=== PATIENT | male | born 1940 | race African-American/Black ===

== ENCOUNTER 2021-04-27 12:46 | Inpatient (IN) | payer OTHER ==
[2021-04-27 14:04] VITALS: BMI 16.7
[2021-04-27] MEDS ORDERED: ACETAMINOPHEN 325 MG TABLET (FP) PO PRN ×2 (14:35)
[2021-04-27] MEDS ORDERED: NICOTINE POLACRILEX 2 MG GUM BUC PRN (14:35)
[2021-04-27] MEDS ORDERED: MAG HYDROX/AL HYDROX/SIMETH 30 ML UNIT-DOSE CUP PO PRN (14:35)
[2021-04-27] MEDS ORDERED: MAGNESIUM HYDROX 2400MG/30ML ORAL SUSPENSION 30 ML CUP PO PRN (14:35)
[2021-04-27] MEDS ORDERED: ONDANSETRON *ODT* 4 MG TABLET SL PRN (14:35)
[2021-04-27] MEDS ORDERED: MAGNESIUM CITRATE 300 ML BOTTLE PO PRN (14:35)
[2021-04-27] MEDS ORDERED: METHOCARBAMOL 500 MG TABLET PO PRN (14:35)
[2021-04-27] MEDS ORDERED: MENTHOL/PHENOL 1 EACH UD MM PRN (14:35)
[2021-04-27] MEDS ORDERED: BISMUTH SUBSALICYLATE 524 MG/30 ML PO PRN (14:35)
[2021-04-27] MEDS ORDERED: IBUPROFEN 400 MG TABLET (FP) PO PRN (14:35)
[2021-04-27] MEDS: NICOTINE 14 MG/24 HOURS TOPICAL PATCH TD SCH (17:50)
[2021-04-27] MEDS: hydrOXYzine PAMOATE 25 MG CAPSULE (FP) PO SCH ×2 (17:50→22:52)
[2021-04-27] MEDS: ALBUTEROL SO4 HFA INHALER IH SCH ×2 (18:07→23:13)
[2021-04-27] MEDS: ATORVASTATIN CA 40 MG TABLET (FP) PO SCH (22:52)
[2021-04-27] MEDS: THIAMINE HCL 100 MG TABLET (FP) PO SCH (22:52)
[2021-04-27] MEDS: BUDESONIDE/FORMETEROL FUMARATE 160/4.5 mcg INHALER IH SCH (22:58)
[2021-04-27] MEDS: MELATONIN 5 MG TABLETS PO SCH (23:10)
[2021-04-28] MEDS: hydrOXYzine PAMOATE 25 MG CAPSULE (FP) PO SCH ×5 (06:30→22:43)
[2021-04-28] MEDS: ALBUTEROL SO4 HFA INHALER IH SCH ×4 (06:30→22:43)
[2021-04-28] MEDS: TAMSULOSIN HCL 0.4 MG CAP PO SCH (08:48)
[2021-04-28 09:56] LABS: HEMATOCRIT 30.3 % (35.4-49); HEMOGLOBIN 10.3 GM/dL (11.7-16.9); MCH 32.1 pg (25.7-33.7); MCHC 33.9 g/dl (32.0-35.9); MEAN CELL VOLUME 94.6 fl (80-96); MEAN PLT VOLUME 7.7 fl (7.5-11.1); PLATELET COUNT 287 10^3/uL (134-434)
[2021-04-28 10:15] LABS: ALBUMIN 2.6 g/dl (3.4-5.0); BLOOD UREA NITROGEN 14.4 mg/dL (7-18); CALCIUM 7.9 mg/dL (8.5-10.1)
[2021-04-28 10:19] LABS: CREATININE 0.8 mg/dL (0.55-1.3)
[2021-04-28 10:20] LABS: BILIRUBIN,TOTAL 0.4 mg/dL (0.2-1); TOT PROT 5.7 g/dl (6.4-8.2)
[2021-04-28] MEDS: NIFEdipine E.R. 30 MG TABLET PO SCH (10:47)
[2021-04-28] MEDS: PRENATAL VITAMINS W/ FOLIC ACID TABLET (FP) PO SCH (10:48)
[2021-04-28] MEDS: PANTOPRAZOLE 40 MG TABLET PO SCH (10:48)
[2021-04-28] MEDS: ASPIRIN 81 MG CHEWABLE TABLETS PO SCH (10:48)
[2021-04-28] MEDS: NICOTINE 14 MG/24 HOURS TOPICAL PATCH TD SCH (10:48)
[2021-04-28] MEDS: BUDESONIDE/FORMETEROL FUMARATE 160/4.5 mcg INHALER IH SCH ×2 (10:49→22:43)
[2021-04-28] MEDS ORDERED: LORazepam 1 MG TABLET PO PRN (12:51)
[2021-04-28] MEDS: LORazepam 2 MG TABLET PO SCH ×2 (18:19→22:42)
[2021-04-28] MEDS: CALCIUM 500MG/VIT-D 200 UNITS COMBO TABLET (FP) PO SCH (22:42)
[2021-04-28] MEDS: ATORVASTATIN CA 40 MG TABLET (FP) PO SCH (22:42)
[2021-04-28] MEDS: MELATONIN 5 MG TABLETS PO SCH (22:42)
[2021-04-28] MEDS: THIAMINE HCL 100 MG TABLET (FP) PO SCH (22:43)
[2021-04-29] MEDS: hydrOXYzine PAMOATE 25 MG CAPSULE (FP) PO SCH (06:07)
[2021-04-29] MEDS: ALBUTEROL SO4 HFA INHALER IH SCH ×4 (06:07→23:04)
[2021-04-29] MEDS: LORazepam 2 MG TABLET PO SCH ×4 (06:15→23:03)
[2021-04-29] MEDS: TAMSULOSIN HCL 0.4 MG CAP PO SCH (09:01)
[2021-04-29] MEDS: CALCIUM 500MG/VIT-D 200 UNITS COMBO TABLET (FP) PO SCH ×2 (11:00→23:03)
[2021-04-29] MEDS: PANTOPRAZOLE 40 MG TABLET PO SCH (11:00)
[2021-04-29] MEDS: PRENATAL VITAMINS W/ FOLIC ACID TABLET (FP) PO SCH (11:00)
[2021-04-29] MEDS: ASPIRIN 81 MG CHEWABLE TABLETS PO SCH (11:00)
[2021-04-29] MEDS: BUDESONIDE/FORMETEROL FUMARATE 160/4.5 mcg INHALER IH SCH ×2 (11:01→23:04)
[2021-04-29] MEDS: NIFEdipine E.R. 30 MG TABLET PO SCH (11:01)
[2021-04-29] MEDS: NICOTINE 14 MG/24 HOURS TOPICAL PATCH TD SCH (11:02)
[2021-04-29] MEDS: THIAMINE HCL 100 MG TABLET (FP) PO SCH (23:03)
[2021-04-29] MEDS: ATORVASTATIN CA 40 MG TABLET (FP) PO SCH (23:04)
[2021-04-29] MEDS: MELATONIN 5 MG TABLETS PO SCH (23:04)
[2021-04-30] MEDS: LORazepam 1 MG TABLET PO SCH ×4 (06:06→22:54)
[2021-04-30] MEDS: ALBUTEROL SO4 HFA INHALER IH SCH ×4 (06:08→22:55)
[2021-04-30] MEDS: TAMSULOSIN HCL 0.4 MG CAP PO SCH (08:36)
[2021-04-30] MEDS: PRENATAL VITAMINS W/ FOLIC ACID TABLET (FP) PO SCH (10:35)
[2021-04-30] MEDS: BUDESONIDE/FORMETEROL FUMARATE 160/4.5 mcg INHALER IH SCH ×2 (10:35→22:55)
[2021-04-30] MEDS: NIFEdipine E.R. 30 MG TABLET PO SCH (10:36)
[2021-04-30] MEDS: ASPIRIN 81 MG CHEWABLE TABLETS PO SCH (10:36)
[2021-04-30] MEDS: PANTOPRAZOLE 40 MG TABLET PO SCH (10:36)
[2021-04-30] MEDS: CALCIUM 500MG/VIT-D 200 UNITS COMBO TABLET (FP) PO SCH ×2 (10:37→22:54)
[2021-04-30] MEDS: NICOTINE 14 MG/24 HOURS TOPICAL PATCH TD SCH (10:43)
[2021-04-30] MEDS: THIAMINE HCL 100 MG TABLET (FP) PO SCH (22:54)
[2021-04-30] MEDS: MELATONIN 5 MG TABLETS PO SCH (22:54)
[2021-04-30] MEDS: ATORVASTATIN CA 40 MG TABLET (FP) PO SCH (22:54)
[2021-05-01] MEDS ORDERED: LORazepam 0.5 MG TABLET PO PRN
[2021-05-01] MEDS: ALBUTEROL SO4 HFA INHALER IH SCH ×2 (05:19→10:31)
[2021-05-01] MEDS: LORazepam 0.5 MG TABLET PO SCH ×2 (06:09→10:32)
[2021-05-01] MEDS: TAMSULOSIN HCL 0.4 MG CAP PO SCH (10:22)
[2021-05-01] MEDS: PANTOPRAZOLE 40 MG TABLET PO SCH (10:22)
[2021-05-01] MEDS: PRENATAL VITAMINS W/ FOLIC ACID TABLET (FP) PO SCH (10:22)
[2021-05-01] MEDS: ASPIRIN 81 MG CHEWABLE TABLETS PO SCH (10:22)
[2021-05-01] MEDS: NIFEdipine E.R. 30 MG TABLET PO SCH (10:22)
[2021-05-01] MEDS: CALCIUM 500MG/VIT-D 200 UNITS COMBO TABLET (FP) PO SCH (10:23)
[2021-05-01] MEDS: BUDESONIDE/FORMETEROL FUMARATE 160/4.5 mcg INHALER IH SCH (10:31)
[2021-05-01] MEDS: NICOTINE 14 MG/24 HOURS TOPICAL PATCH TD SCH (10:31)
[2021-05-01 14:09] VITALS: BP 143/81; PULSE 78; TEMP 97.1
[2021-05-02] MEDS ORDERED: LORazepam 0.5 MG TABLET PO ONE (05:00)
== END 2021-05-01 16:00 | disposition home or self-care (01) | DRG 897 ==
LOC: YASAS 12:46 → Y3N 14:59
PROVIDERS: ADMIT Allergy & Immunology; ATTEND Allergy & Immunology
PROC: HZ2ZZZZ Detoxification Services for Substance Abuse Treatment (ICD-10-PCS; principal; 2021-04-27)
DX: F10.230 Alcohol dependence with withdrawal, uncomplicated (principal); F17.210 Nicotine dependence, cigarettes, uncomplicated; D64.9 Anemia, unspecified; E83.51 Hypocalcemia; I10 Essential (primary) hypertension; J44.9 Chronic obstructive pulmonary disease, unspecified; N40.0 Benign prostatic hyperplasia without lower urinary tract symptoms; Z99.89 Dependence on other enabling machines and devices; Z86.19 Personal history of other infectious and parasitic diseases
CPT/HCPCS: 36415; 80053; 85027; 86593; 86780; 93005; 93010; C9803; U0003; U0005

== ENCOUNTER 2021-06-19 12:07 | Inpatient (IN) | payer OTHER ==
[2021-06-19 15:40] VITALS: BMI 17.4
[2021-06-19] MEDS ORDERED: LORazepam 1 MG TABLET PO PRN (16:31)
[2021-06-19] MEDS ORDERED: MAGNESIUM HYDROX 2400MG/30ML ORAL SUSPENSION 30 ML CUP PO PRN (16:32)
[2021-06-19] MEDS ORDERED: BISMUTH SUBSALICYLATE 524 MG/30 ML PO PRN (16:32)
[2021-06-19] MEDS ORDERED: ONDANSETRON *ODT* 4 MG TABLET SL PRN (16:32)
[2021-06-19] MEDS ORDERED: MAGNESIUM CITRATE 300 ML BOTTLE PO PRN (16:32)
[2021-06-19] MEDS ORDERED: IBUPROFEN 400 MG TABLET (FP) PO PRN (16:32)
[2021-06-19] MEDS ORDERED: MENTHOL/PHENOL 1 EACH UD MM PRN (16:32)
[2021-06-19] MEDS ORDERED: METHOCARBAMOL 500 MG TABLET PO PRN (16:32)
[2021-06-19] MEDS ORDERED: ACETAMINOPHEN 325 MG TABLET (FP) PO PRN ×2 (16:32)
[2021-06-19] MEDS ORDERED: MAG HYDROX/AL HYDROX/SIMETH 30 ML UNIT-DOSE CUP PO PRN (16:32)
[2021-06-19] MEDS ORDERED: NICOTINE 10 MG CARTRIDGE (INHALER) IH PRN (16:32)
[2021-06-19] MEDS ORDERED: ALBUTEROL SO4 HFA INHALER IH PRN (17:59)
[2021-06-19] MEDS ORDERED: hydrOXYzine PAMOATE 25 MG CAPSULE (FP) PO SCH (18:00)
[2021-06-19] MEDS: ATORVASTATIN CA 40 MG TABLET (FP) PO SCH (22:50)
[2021-06-19] MEDS: MELATONIN 5 MG TABLETS PO SCH (22:50)
[2021-06-19] MEDS: THIAMINE HCL 100 MG TABLET (FP) PO SCH (22:50)
[2021-06-19] MEDS: hydrOXYzine PAMOATE 25 MG CAPSULE (FP) PO PRN (22:50)
[2021-06-19] MEDS: BUDESONIDE/FORMETEROL FUMARATE 160/4.5 mcg INHALER IH SCH (22:50)
[2021-06-19] MEDS: LORazepam 2 MG TABLET PO SCH (22:50)
[2021-06-20] MEDS: LORazepam 2 MG TABLET PO SCH ×4 (05:35→23:11)
[2021-06-20] MEDS ORDERED: NIFEdipine E.R. 30 MG TABLET PO SCH (10:00)
[2021-06-20] MEDS: PANTOPRAZOLE 40 MG TABLET PO SCH (11:20)
[2021-06-20] MEDS: TAMSULOSIN HCL 0.4 MG CAP PO SCH (11:20)
[2021-06-20] MEDS: BUDESONIDE/FORMETEROL FUMARATE 160/4.5 mcg INHALER IH SCH ×2 (11:20→23:11)
[2021-06-20] MEDS: ASPIRIN 81 MG CHEWABLE TABLETS PO SCH (11:20)
[2021-06-20] MEDS: PRENATAL VITAMINS W/ FOLIC ACID TABLET (FP) PO SCH (11:21)
[2021-06-20 12:44] LABS: HEMATOCRIT 32.1 % (35.4-49); MCH 32.5 pg (25.7-33.7); MCHC 34.3 g/dl (32.0-35.9); MEAN CELL VOLUME 94.6 fl (80-96); MEAN PLT VOLUME 7.9 fl (7.5-11.1); PLATELET COUNT 140 10^3/uL (134-434); RBC 3.39 M/mm3 (4.00-5.60); RDW 15.6 % (11.9-15.9); WHITE BLOOD COUNT 4.3 K/mm3 (4.0-10.0)
[2021-06-20 12:49] LABS: ALBUMIN 2.8 g/dl (3.4-5.0); BLOOD UREA NITROGEN 12.8 mg/dL (7-18)
[2021-06-20 12:53] LABS: CREATININE 0.9 mg/dL (0.55-1.3)
[2021-06-20 12:54] LABS: BILIRUBIN,TOTAL 1.1 mg/dL (0.2-1); TOT PROT 6.3 g/dl (6.4-8.2)
[2021-06-20] MEDS: THIAMINE HCL 100 MG TABLET (FP) PO SCH (23:11)
[2021-06-20] MEDS: MELATONIN 5 MG TABLETS PO SCH (23:11)
[2021-06-20] MEDS: ATORVASTATIN CA 40 MG TABLET (FP) PO SCH (23:11)
[2021-06-21] MEDS: LORazepam 1 MG TABLET PO SCH ×4 (05:59→22:42)
[2021-06-21] MEDS: PANTOPRAZOLE 40 MG TABLET PO SCH (10:50)
[2021-06-21] MEDS: BUDESONIDE/FORMETEROL FUMARATE 160/4.5 mcg INHALER IH SCH ×2 (10:50→22:42)
[2021-06-21] MEDS: ASPIRIN 81 MG CHEWABLE TABLETS PO SCH (10:50)
[2021-06-21] MEDS: TAMSULOSIN HCL 0.4 MG CAP PO SCH (10:50)
[2021-06-21] MEDS: PRENATAL VITAMINS W/ FOLIC ACID TABLET (FP) PO SCH (10:51)
[2021-06-21] MEDS: NIFEdipine E.R 60 MG TABLET PO SCH (10:52)
[2021-06-21] MEDS: hydrOXYzine PAMOATE 25 MG CAPSULE (FP) PO PRN (18:05)
[2021-06-21] MEDS: ATORVASTATIN CA 40 MG TABLET (FP) PO SCH (22:42)
[2021-06-21] MEDS: THIAMINE HCL 100 MG TABLET (FP) PO SCH (22:42)
[2021-06-21] MEDS: MELATONIN 5 MG TABLETS PO SCH (22:42)
[2021-06-22] MEDS ORDERED: LORazepam 0.5 MG TABLET PO PRN
[2021-06-22] MEDS: LORazepam 0.5 MG TABLET PO SCH ×4 (06:44→22:45)
[2021-06-22] MEDS: PRENATAL VITAMINS W/ FOLIC ACID TABLET (FP) PO SCH (10:45)
[2021-06-22] MEDS: PANTOPRAZOLE 40 MG TABLET PO SCH (10:46)
[2021-06-22] MEDS: TAMSULOSIN HCL 0.4 MG CAP PO SCH (10:46)
[2021-06-22] MEDS: ASPIRIN 81 MG CHEWABLE TABLETS PO SCH (10:46)
[2021-06-22] MEDS: BUDESONIDE/FORMETEROL FUMARATE 160/4.5 mcg INHALER IH SCH ×2 (10:47→22:45)
[2021-06-22] MEDS: NIFEdipine E.R 60 MG TABLET PO SCH (10:47)
[2021-06-22] MEDS: MELATONIN 5 MG TABLETS PO SCH (22:44)
[2021-06-22] MEDS: THIAMINE HCL 100 MG TABLET (FP) PO SCH (22:48)
[2021-06-22] MEDS: ATORVASTATIN CA 40 MG TABLET (FP) PO SCH (22:48)
[2021-06-23] MEDS ORDERED: LORazepam 0.5 MG TABLET PO ONE (05:00)
[2021-06-23 09:39] VITALS: BP 132/76; PULSE 83; TEMP 96.8
[2021-06-23] MEDS: TAMSULOSIN HCL 0.4 MG CAP PO SCH (10:57)
[2021-06-23] MEDS: PANTOPRAZOLE 40 MG TABLET PO SCH (10:57)
[2021-06-23] MEDS: NIFEdipine E.R 60 MG TABLET PO SCH (10:57)
[2021-06-23] MEDS: PRENATAL VITAMINS W/ FOLIC ACID TABLET (FP) PO SCH (10:57)
[2021-06-23] MEDS: BUDESONIDE/FORMETEROL FUMARATE 160/4.5 mcg INHALER IH SCH (10:57)
[2021-06-23] MEDS: ASPIRIN 81 MG CHEWABLE TABLETS PO SCH (10:57)
== END 2021-06-23 11:50 | disposition home or self-care (01) | DRG 897 ==
LOC: YASAS 12:07 → Y3N 17:18
PROVIDERS: ADMIT Allergy & Immunology; ATTEND Allergy & Immunology
PROC: HZ2ZZZZ Detoxification Services for Substance Abuse Treatment (ICD-10-PCS; principal; 2021-06-19)
DX: F10.230 Alcohol dependence with withdrawal, uncomplicated (principal); F17.210 Nicotine dependence, cigarettes, uncomplicated; F19.24 Other psychoactive substance dependence with psychoactive substance-induced mood disorder; D64.9 Anemia, unspecified; E78.5 Hyperlipidemia, unspecified; J44.9 Chronic obstructive pulmonary disease, unspecified; N40.0 Benign prostatic hyperplasia without lower urinary tract symptoms; R26.89 Other abnormalities of gait and mobility; Z99.89 Dependence on other enabling machines and devices; Z86.59 Personal history of other mental and behavioral disorders; Z86.2 Personal history of diseases of the blood and blood-forming organs and certain disorders involving the immune mechanism
CPT/HCPCS: 36415; 80053; 85027; 86593; 86780; C9803; U0003; U0005

== ENCOUNTER 2021-07-19 11:29 | Inpatient (IN) | payer OTHER ==
[2021-07-19 11:57] VITALS: BMI 17.0
[2021-07-19] MEDS ORDERED: LORazepam 1 MG TABLET PO PRN (13:03)
[2021-07-19] MEDS ORDERED: NICOTINE 14 MG/24 HOURS TOPICAL PATCH TD PRN (13:04)
[2021-07-19] MEDS ORDERED: METHOCARBAMOL 500 MG TABLET PO PRN (13:04)
[2021-07-19] MEDS ORDERED: MAGNESIUM HYDROX 2400MG/30ML ORAL SUSPENSION 30 ML CUP PO PRN (13:04)
[2021-07-19] MEDS ORDERED: NICOTINE POLACRILEX 2 MG GUM BUC PRN (13:04)
[2021-07-19] MEDS ORDERED: ONDANSETRON *ODT* 4 MG TABLET SL PRN (13:04)
[2021-07-19] MEDS ORDERED: MENTHOL/PHENOL 1 EACH UD MM PRN (13:04)
[2021-07-19] MEDS ORDERED: IBUPROFEN 400 MG TABLET (FP) PO PRN (13:04)
[2021-07-19] MEDS ORDERED: BISMUTH SUBSALICYLATE 262 MG/15 ML BTL PO PRN (13:04)
[2021-07-19] MEDS ORDERED: NICOTINE 10 MG CARTRIDGE (INHALER) IH PRN (13:04)
[2021-07-19] MEDS ORDERED: MAG HYDROX/AL HYDROX/SIMETH 30 ML UNIT-DOSE CUP PO PRN (13:04)
[2021-07-19] MEDS ORDERED: ACETAMINOPHEN 325 MG TABLET (FP) PO PRN ×2 (13:04)
[2021-07-19] MEDS ORDERED: MAGNESIUM CITRATE 300 ML BOTTLE PO PRN (13:04)
[2021-07-19] MEDS ORDERED: ALBUTEROL SO4 HFA INHALER IH SCH (13:15)
[2021-07-19] MEDS: BUDESONIDE/FORMETEROL FUMARATE 160/4.5 mcg INHALER IH SCH ×2 (14:08→22:45)
[2021-07-19] MEDS: ASPIRIN 81 MG CHEWABLE TABLETS PO SCH (14:09)
[2021-07-19] MEDS: TAMSULOSIN HCL 0.4 MG CAP PO SCH (14:09)
[2021-07-19] MEDS: PANTOPRAZOLE 40 MG TABLET PO SCH (14:09)
[2021-07-19] MEDS: FOLIC ACID 1 MG TABLET (FP) PO SCH (14:09)
[2021-07-19] MEDS ORDERED: ALBUTEROL SO4 HFA INHALER IH PRN (14:10)
[2021-07-19] MEDS: PRENATAL VITAMINS W/ FOLIC ACID TABLET (FP) PO SCH (14:10)
[2021-07-19] MEDS: hydrOXYzine PAMOATE 25 MG CAPSULE (FP) PO SCH ×3 (15:11→22:44)
[2021-07-19] MEDS: LORazepam 2 MG TABLET PO SCH ×3 (15:11→22:44)
[2021-07-19 16:42] LABS: CALCIUM 8.6 mg/dL (8.5-10.1); HEMATOCRIT 33.4 % (35.4-49); HEMOGLOBIN 11.3 GM/dL (11.7-16.9); MCH 32.4 pg (25.7-33.7); MCHC 33.6 g/dl (32.0-35.9); MEAN CELL VOLUME 96.3 fl (80-96); RBC 3.47 M/mm3 (4.00-5.60); RDW 15.7 % (11.9-15.9); WHITE BLOOD COUNT 4.4 K/mm3 (4.0-10.0)
[2021-07-19 16:45] LABS: ALBUMIN 3.2 g/dl (3.4-5.0)
[2021-07-19 16:47] LABS: BLOOD UREA NITROGEN 19.2 mg/dL (7-18)
[2021-07-19 16:48] LABS: CREATININE 1.1 mg/dL (0.55-1.3)
[2021-07-19 16:50] LABS: BILIRUBIN,TOTAL 0.6 mg/dL (0.2-1); TOT PROT 6.7 g/dl (6.4-8.2)
[2021-07-19 18:42] LABS: MEAN PLT VOLUME 8.1 fl (7.5-11.1); PLATELET COUNT 80 10^3/uL (134-434)
[2021-07-19] MEDS: THIAMINE HCL 100 MG TABLET (FP) PO SCH (22:43)
[2021-07-19] MEDS: ATORVASTATIN CA 40 MG TABLET (FP) PO SCH (22:43)
[2021-07-19] MEDS: MELATONIN 5 MG TABLETS PO SCH (22:43)
[2021-07-20] MEDS: LORazepam 2 MG TABLET PO SCH ×4 (05:57→22:51)
[2021-07-20] MEDS: hydrOXYzine PAMOATE 25 MG CAPSULE (FP) PO SCH ×5 (06:06→22:49)
[2021-07-20] MEDS: BUDESONIDE/FORMETEROL FUMARATE 160/4.5 mcg INHALER IH SCH ×2 (10:37→22:56)
[2021-07-20] MEDS: PRENATAL VITAMINS W/ FOLIC ACID TABLET (FP) PO SCH (10:38)
[2021-07-20] MEDS: PANTOPRAZOLE 40 MG TABLET PO SCH (10:39)
[2021-07-20] MEDS: FOLIC ACID 1 MG TABLET (FP) PO SCH (10:39)
[2021-07-20] MEDS: ASPIRIN 81 MG CHEWABLE TABLETS PO SCH (10:39)
[2021-07-20] MEDS: NIFEdipine E.R 60 MG TABLET PO SCH (10:40)
[2021-07-20] MEDS: TAMSULOSIN HCL 0.4 MG CAP PO SCH (11:05)
[2021-07-20] MEDS: THIAMINE HCL 100 MG TABLET (FP) PO SCH (22:49)
[2021-07-20] MEDS: ATORVASTATIN CA 40 MG TABLET (FP) PO SCH (22:49)
[2021-07-20] MEDS: MELATONIN 5 MG TABLETS PO SCH (22:49)
[2021-07-21] MEDS: hydrOXYzine PAMOATE 25 MG CAPSULE (FP) PO SCH ×5 (06:45→22:42)
[2021-07-21] MEDS: LORazepam 1 MG TABLET PO SCH ×4 (06:46→22:44)
[2021-07-21] MEDS: PRENATAL VITAMINS W/ FOLIC ACID TABLET (FP) PO SCH (10:40)
[2021-07-21] MEDS: BUDESONIDE/FORMETEROL FUMARATE 160/4.5 mcg INHALER IH SCH ×2 (10:40→22:46)
[2021-07-21] MEDS: PANTOPRAZOLE 40 MG TABLET PO SCH (10:40)
[2021-07-21] MEDS: FOLIC ACID 1 MG TABLET (FP) PO SCH (10:40)
[2021-07-21] MEDS: NIFEdipine E.R 60 MG TABLET PO SCH (10:41)
[2021-07-21] MEDS: TAMSULOSIN HCL 0.4 MG CAP PO SCH (10:41)
[2021-07-21] MEDS: ASPIRIN 81 MG CHEWABLE TABLETS PO SCH (10:41)
[2021-07-21] MEDS: THIAMINE HCL 100 MG TABLET (FP) PO SCH (22:42)
[2021-07-21] MEDS: ATORVASTATIN CA 40 MG TABLET (FP) PO SCH (22:42)
[2021-07-21] MEDS: MELATONIN 5 MG TABLETS PO SCH (22:46)
[2021-07-22] MEDS ORDERED: LORazepam 0.5 MG TABLET PO PRN
[2021-07-22] MEDS: hydrOXYzine PAMOATE 25 MG CAPSULE (FP) PO SCH ×5 (06:25→23:16)
[2021-07-22] MEDS: LORazepam 0.5 MG TABLET PO SCH ×4 (06:25→23:16)
[2021-07-22] MEDS: TAMSULOSIN HCL 0.4 MG CAP PO SCH (08:38)
[2021-07-22] MEDS: ASPIRIN 81 MG CHEWABLE TABLETS PO SCH (10:38)
[2021-07-22] MEDS: PANTOPRAZOLE 40 MG TABLET PO SCH (10:38)
[2021-07-22] MEDS: BUDESONIDE/FORMETEROL FUMARATE 160/4.5 mcg INHALER IH SCH ×2 (10:38→23:16)
[2021-07-22] MEDS: PRENATAL VITAMINS W/ FOLIC ACID TABLET (FP) PO SCH (10:38)
[2021-07-22] MEDS: FOLIC ACID 1 MG TABLET (FP) PO SCH (10:38)
[2021-07-22] MEDS: NIFEdipine E.R 60 MG TABLET PO SCH (10:40)
[2021-07-22] MEDS: MELATONIN 5 MG TABLETS PO SCH (23:16)
[2021-07-22] MEDS: THIAMINE HCL 100 MG TABLET (FP) PO SCH (23:16)
[2021-07-22] MEDS: ATORVASTATIN CA 40 MG TABLET (FP) PO SCH (23:16)
[2021-07-23] MEDS ORDERED: LORazepam 0.5 MG TABLET PO ONE (05:00)
[2021-07-23] MEDS: hydrOXYzine PAMOATE 25 MG CAPSULE (FP) PO SCH ×2 (05:28→10:52)
[2021-07-23 09:22] VITALS: BP 133/69; PULSE 80; TEMP 97.5
[2021-07-23] MEDS: ASPIRIN 81 MG CHEWABLE TABLETS PO SCH (10:50)
[2021-07-23] MEDS: BUDESONIDE/FORMETEROL FUMARATE 160/4.5 mcg INHALER IH SCH (10:50)
[2021-07-23] MEDS: PANTOPRAZOLE 40 MG TABLET PO SCH (10:50)
[2021-07-23] MEDS: TAMSULOSIN HCL 0.4 MG CAP PO SCH (10:50)
[2021-07-23] MEDS: NIFEdipine E.R 60 MG TABLET PO SCH (10:50)
[2021-07-23] MEDS: FOLIC ACID 1 MG TABLET (FP) PO SCH (10:50)
[2021-07-23] MEDS: PRENATAL VITAMINS W/ FOLIC ACID TABLET (FP) PO SCH (10:50)
== END 2021-07-23 11:48 | disposition home or self-care (01) | DRG 897 ==
LOC: YASAS 11:29 → Y3N 12:07
PROVIDERS: ADMIT Allergy & Immunology; ATTEND Allergy & Immunology
PROC: HZ2ZZZZ Detoxification Services for Substance Abuse Treatment (ICD-10-PCS; principal; 2021-07-19)
DX: F10.230 Alcohol dependence with withdrawal, uncomplicated (principal); F17.210 Nicotine dependence, cigarettes, uncomplicated; I10 Essential (primary) hypertension; J44.9 Chronic obstructive pulmonary disease, unspecified; E78.5 Hyperlipidemia, unspecified; D64.9 Anemia, unspecified; N40.0 Benign prostatic hyperplasia without lower urinary tract symptoms; R26.2 Difficulty in walking, not elsewhere classified; Z99.89 Dependence on other enabling machines and devices; Z86.19 Personal history of other infectious and parasitic diseases; Z56.0 Unemployment, unspecified
CPT/HCPCS: 36415; 80053; 85027; 86593; 86780; C9803; U0003; U0005

== ENCOUNTER 2022-01-11 12:41 | Inpatient (IN) | payer OTHER ==
[2022-01-11 16:08] VITALS: BMI 16.9
[2022-01-11] MEDS ORDERED: IBUPROFEN 400 MG TABLET (FP) PO PRN (18:10)
[2022-01-11] MEDS ORDERED: MAGNESIUM HYDROX 2400MG/30ML ORAL SUSPENSION 30 ML CUP PO PRN (18:10)
[2022-01-11] MEDS ORDERED: BENZOCAINE/MENTHOL (CHLORASEPTIC ) LOZENGE MM PRN (18:10)
[2022-01-11] MEDS ORDERED: MAGNESIUM CITRATE 300 ML BOTTLE PO PRN (18:10)
[2022-01-11] MEDS ORDERED: METHOCARBAMOL 500 MG TABLET PO PRN (18:10)
[2022-01-11] MEDS ORDERED: BISMUTH SUBSALICYLATE 524 MG/30 ML PO PRN (18:10)
[2022-01-11] MEDS ORDERED: ACETAMINOPHEN 325 MG TABLET (FP) PO PRN ×2 (18:10)
[2022-01-11] MEDS ORDERED: ONDANSETRON *ODT* 4 MG TABLET SL PRN (18:10)
[2022-01-11] MEDS ORDERED: MAG HYDROX/AL HYDROX/SIMETH 30 ML UNIT-DOSE CUP PO PRN (18:10)
[2022-01-11] MEDS ORDERED: LOPERAMIDE HCL 2 MG CAPSULE PO PRN (18:10)
[2022-01-11] MEDS ORDERED: DICYCLOMINE HCL 10 MG CAPSULE PO PRN (18:10)
[2022-01-11] MEDS ORDERED: diazePAM 5 MG TABLET PO PRN (18:13)
[2022-01-11] MEDS: ALBUTEROL SO4 HFA INHALER IH SCH (19:27)
[2022-01-11] MEDS: BUDESONIDE/FORMETEROL FUMARATE 160/4.5 mcg INHALER IH SCH (22:24)
[2022-01-11] MEDS: hydrOXYzine PAMOATE 25 MG CAPSULE (FP) PO SCH (22:24)
[2022-01-11] MEDS: THIAMINE HCL 100 MG TABLET (FP) PO SCH (22:24)
[2022-01-11] MEDS: ATORVASTATIN CA 40 MG TABLET (FP) PO SCH (22:24)
[2022-01-11] MEDS: MELATONIN 5 MG TABLETS PO SCH (22:24)
[2022-01-11] MEDS: MIRTAZAPINE 15 MG TABLET (FP) PO SCH (22:26)
[2022-01-11] MEDS: diazePAM 5 MG TABLET PO SCH (22:28)
[2022-01-11] MEDS ORDERED: chlordiazePOXIDE HCL 25 MG CAPSULE PO SCH (23:00)
[2022-01-12] MEDS: ALBUTEROL SO4 HFA INHALER IH SCH ×4 (02:01→18:47)
[2022-01-12] MEDS: hydrOXYzine PAMOATE 25 MG CAPSULE (FP) PO SCH ×5 (05:36→23:04)
[2022-01-12] MEDS: diazePAM 5 MG TABLET PO SCH ×4 (05:36→23:04)
[2022-01-12] MEDS: TAMSULOSIN HCL 0.4 MG CAP PO SCH (09:48)
[2022-01-12] MEDS: THIAMINE HCL 100 MG TABLET (FP) PO SCH ×2 (09:48→23:04)
[2022-01-12] MEDS: PANTOPRAZOLE 40 MG TABLET PO SCH (09:48)
[2022-01-12] MEDS: ASPIRIN 81 MG CHEWABLE TABLETS PO SCH (09:48)
[2022-01-12] MEDS: PRENATAL VITAMINS W/ FOLIC ACID TABLET (FP) PO SCH (09:48)
[2022-01-12] MEDS: BUDESONIDE/FORMETEROL FUMARATE 160/4.5 mcg INHALER IH SCH ×2 (09:48→23:05)
[2022-01-12] MEDS: FOLIC ACID 1 MG TABLET (FP) PO SCH (09:51)
[2022-01-12] MEDS ORDERED: SERTRALINE HCL 25 MG TABLET (FP) PO SCH (10:00)
[2022-01-12] MEDS ORDERED: NIFEdipine E.R. 30 MG TABLET PO SCH (10:00)
[2022-01-12] MEDS: ATORVASTATIN CA 40 MG TABLET (FP) PO SCH (23:03)
[2022-01-12] MEDS: MELATONIN 5 MG TABLETS PO SCH (23:05)
[2022-01-12] MEDS: MIRTAZAPINE 15 MG TABLET (FP) PO SCH (23:05)
[2022-01-13] MEDS: ALBUTEROL SO4 HFA INHALER IH SCH ×4 (00:54→18:22)
[2022-01-13] MEDS: hydrOXYzine PAMOATE 25 MG CAPSULE (FP) PO SCH ×5 (05:41→22:56)
[2022-01-13] MEDS: diazePAM 5 MG TABLET PO SCH ×3 (05:42→22:57)
[2022-01-13] MEDS: NIFEdipine E.R 60 MG TABLET PO SCH (10:49)
[2022-01-13] MEDS: TAMSULOSIN HCL 0.4 MG CAP PO SCH (10:49)
[2022-01-13] MEDS: ASPIRIN 81 MG CHEWABLE TABLETS PO SCH (10:49)
[2022-01-13] MEDS: BUDESONIDE/FORMETEROL FUMARATE 160/4.5 mcg INHALER IH SCH ×2 (10:49→22:56)
[2022-01-13] MEDS: PRENATAL VITAMINS W/ FOLIC ACID TABLET (FP) PO SCH (10:49)
[2022-01-13] MEDS: FOLIC ACID 1 MG TABLET (FP) PO SCH (10:49)
[2022-01-13] MEDS: PANTOPRAZOLE 40 MG TABLET PO SCH (10:49)
[2022-01-13] MEDS: THIAMINE HCL 100 MG TABLET (FP) PO SCH ×2 (10:50→22:56)
[2022-01-13 12:54] LABS: BASO % 0.8 % (0-2.0); EOS % 2.9 % (0-4.5); HEMATOCRIT 33.8 % (35.4-49); HEMOGLOBIN 11.3 GM/dL (11.7-16.9); LYMPH % 28.5 % (8-40); MCH 31.7 pg (25.7-33.7); MCHC 33.5 g/dl (32.0-35.9); MEAN CELL VOLUME 94.7 fl (80-96); MEAN PLT VOLUME 8.7 fl (7.5-11.1); MONO % 15.9 % (3.8-10.2); NEUT % 51.9 % (42.8-82.8); PLATELET COUNT 123 10^3/uL (134-434); RBC 3.57 M/mm3 (4.00-5.60); RDW 17.3 % (11.9-15.9)
[2022-01-13 13:07] LABS: ALBUMIN 2.9 g/dl (3.4-5.0); BLOOD UREA NITROGEN 17.6 mg/dL (7-18); CALCIUM 8.2 mg/dL (8.5-10.1)
[2022-01-13 13:10] LABS: CREATININE 1.1 mg/dL (0.55-1.3)
[2022-01-13 13:12] LABS: BILIRUBIN,TOTAL 0.7 mg/dL (0.2-1)
[2022-01-13 16:07] LABS: SARS-CoV-2 NAA Not Detected (Not Detected)
[2022-01-13] MEDS: ATORVASTATIN CA 40 MG TABLET (FP) PO SCH (22:55)
[2022-01-13] MEDS: MELATONIN 5 MG TABLETS PO SCH (22:56)
[2022-01-13] MEDS: MIRTAZAPINE 15 MG TABLET (FP) PO SCH (22:57)
[2022-01-14] MEDS: ALBUTEROL SO4 HFA INHALER IH SCH ×4 (00:05→18:48)
[2022-01-14] MEDS: diazePAM 5 MG TABLET PO SCH ×2 (06:35→18:32)
[2022-01-14] MEDS: hydrOXYzine PAMOATE 25 MG CAPSULE (FP) PO SCH ×5 (06:35→22:58)
[2022-01-14] MEDS: BUDESONIDE/FORMETEROL FUMARATE 160/4.5 mcg INHALER IH SCH ×2 (10:44→22:58)
[2022-01-14] MEDS: PRENATAL VITAMINS W/ FOLIC ACID TABLET (FP) PO SCH (10:44)
[2022-01-14] MEDS: ASPIRIN 81 MG CHEWABLE TABLETS PO SCH (10:45)
[2022-01-14] MEDS: TAMSULOSIN HCL 0.4 MG CAP PO SCH (10:45)
[2022-01-14] MEDS: PANTOPRAZOLE 40 MG TABLET PO SCH (10:45)
[2022-01-14] MEDS: THIAMINE HCL 100 MG TABLET (FP) PO SCH ×2 (10:45→22:58)
[2022-01-14] MEDS: FOLIC ACID 1 MG TABLET (FP) PO SCH (10:45)
[2022-01-14] MEDS: NIFEdipine E.R 60 MG TABLET PO SCH (10:45)
[2022-01-14] MEDS: MIRTAZAPINE 15 MG TABLET (FP) PO SCH (22:58)
[2022-01-14] MEDS: ATORVASTATIN CA 40 MG TABLET (FP) PO SCH (22:58)
[2022-01-14] MEDS: MELATONIN 5 MG TABLETS PO SCH (22:58)
[2022-01-15] MEDS: ALBUTEROL SO4 HFA INHALER IH SCH ×4 (01:45→17:40)
[2022-01-15] MEDS: hydrOXYzine PAMOATE 25 MG CAPSULE (FP) PO SCH ×5 (05:41→21:25)
[2022-01-15] MEDS ORDERED: diazePAM 5 MG TABLET PO ONE (06:00)
[2022-01-15] MEDS: ASPIRIN 81 MG CHEWABLE TABLETS PO SCH (11:29)
[2022-01-15] MEDS: PRENATAL VITAMINS W/ FOLIC ACID TABLET (FP) PO SCH (11:29)
[2022-01-15] MEDS: TAMSULOSIN HCL 0.4 MG CAP PO SCH (11:29)
[2022-01-15] MEDS: FOLIC ACID 1 MG TABLET (FP) PO SCH (11:29)
[2022-01-15] MEDS: NIFEdipine E.R 60 MG TABLET PO SCH (11:29)
[2022-01-15] MEDS: PANTOPRAZOLE 40 MG TABLET PO SCH (11:29)
[2022-01-15] MEDS: BUDESONIDE/FORMETEROL FUMARATE 160/4.5 mcg INHALER IH SCH ×2 (11:30→21:25)
[2022-01-15] MEDS: THIAMINE HCL 100 MG TABLET (FP) PO SCH ×2 (11:30→21:25)
[2022-01-15 13:07] LABS: SARS-CoV-2 NAA Not Detected (Not Detected)
[2022-01-15] MEDS: MIRTAZAPINE 15 MG TABLET (FP) PO SCH (21:25)
[2022-01-15] MEDS: MELATONIN 5 MG TABLETS PO SCH (21:25)
[2022-01-15] MEDS: ATORVASTATIN CA 40 MG TABLET (FP) PO SCH (21:25)
[2022-01-16] MEDS: hydrOXYzine PAMOATE 25 MG CAPSULE (FP) PO SCH ×5 (06:47→21:15)
[2022-01-16] MEDS: ALBUTEROL SO4 HFA INHALER IH SCH ×3 (06:47→18:37)
[2022-01-16] MEDS: ASPIRIN 81 MG CHEWABLE TABLETS PO SCH (10:03)
[2022-01-16] MEDS: PRENATAL VITAMINS W/ FOLIC ACID TABLET (FP) PO SCH (10:03)
[2022-01-16] MEDS: FOLIC ACID 1 MG TABLET (FP) PO SCH (10:03)
[2022-01-16] MEDS: TAMSULOSIN HCL 0.4 MG CAP PO SCH (10:03)
[2022-01-16] MEDS: PANTOPRAZOLE 40 MG TABLET PO SCH (10:03)
[2022-01-16] MEDS: BUDESONIDE/FORMETEROL FUMARATE 160/4.5 mcg INHALER IH SCH ×2 (10:04→21:16)
[2022-01-16] MEDS: NIFEdipine E.R 60 MG TABLET PO SCH (13:27)
[2022-01-16] MEDS: MELATONIN 5 MG TABLETS PO SCH (21:14)
[2022-01-16] MEDS: MIRTAZAPINE 15 MG TABLET (FP) PO SCH (21:15)
[2022-01-16] MEDS: ATORVASTATIN CA 40 MG TABLET (FP) PO SCH (21:15)
[2022-01-16] MEDS: THIAMINE HCL 100 MG TABLET (FP) PO SCH (21:15)
[2022-01-17] MEDS: ALBUTEROL SO4 HFA INHALER IH SCH ×2 (01:33→06:55)
[2022-01-17] MEDS: hydrOXYzine PAMOATE 25 MG CAPSULE (FP) PO SCH ×4 (06:55→18:00)
[2022-01-17] MEDS ORDERED: ALBUTEROL SO4 HFA INHALER IH PRN (10:40)
[2022-01-17] MEDS ORDERED: guaiFENesin 200 MG/10 ML 10 ML UNIT-DOSE CUPS PO PRN (10:45)
[2022-01-17] MEDS: ASPIRIN 81 MG CHEWABLE TABLETS PO SCH (11:33)
[2022-01-17] MEDS: TAMSULOSIN HCL 0.4 MG CAP PO SCH (11:33)
[2022-01-17] MEDS: BUDESONIDE/FORMETEROL FUMARATE 160/4.5 mcg INHALER IH SCH ×2 (11:33→21:05)
[2022-01-17] MEDS: PANTOPRAZOLE 40 MG TABLET PO SCH (11:33)
[2022-01-17] MEDS: NIFEdipine E.R 60 MG TABLET PO SCH (11:33)
[2022-01-17] MEDS: FOLIC ACID 1 MG TABLET (FP) PO SCH (11:33)
[2022-01-17] MEDS: PRENATAL VITAMINS W/ FOLIC ACID TABLET (FP) PO SCH (11:34)
[2022-01-17] MEDS: NICOTINE 10 MG CARTRIDGE (INHALER) IH PRN (18:33)
[2022-01-17] MEDS: THIAMINE HCL 100 MG TABLET (FP) PO SCH (21:06)
[2022-01-17] MEDS: ATORVASTATIN CA 40 MG TABLET (FP) PO SCH (21:06)
[2022-01-17] MEDS: MIRTAZAPINE 15 MG TABLET (FP) PO SCH (21:06)
[2022-01-17] MEDS: MELATONIN 5 MG TABLETS PO SCH (21:06)
[2022-01-18] MEDS: PRENATAL VITAMINS W/ FOLIC ACID TABLET (FP) PO SCH (11:35)
[2022-01-18] MEDS: FOLIC ACID 1 MG TABLET (FP) PO SCH (11:36)
[2022-01-18] MEDS: NIFEdipine E.R 60 MG TABLET PO SCH (11:36)
[2022-01-18] MEDS: TAMSULOSIN HCL 0.4 MG CAP PO SCH (11:36)
[2022-01-18] MEDS: PANTOPRAZOLE 40 MG TABLET PO SCH (11:36)
[2022-01-18] MEDS: BUDESONIDE/FORMETEROL FUMARATE 160/4.5 mcg INHALER IH SCH ×2 (11:38→21:04)
[2022-01-18] MEDS: ASPIRIN 81 MG CHEWABLE TABLETS PO SCH (11:38)
[2022-01-18] MEDS: NICOTINE 10 MG CARTRIDGE (INHALER) IH PRN (15:15)
[2022-01-18] MEDS: THIAMINE HCL 100 MG TABLET (FP) PO SCH (21:04)
[2022-01-18] MEDS: ATORVASTATIN CA 40 MG TABLET (FP) PO SCH (21:04)
[2022-01-18] MEDS: MELATONIN 5 MG TABLETS PO SCH (21:04)
[2022-01-18] MEDS: MIRTAZAPINE 15 MG TABLET (FP) PO SCH (21:04)
[2022-01-19] MEDS: BUDESONIDE/FORMETEROL FUMARATE 160/4.5 mcg INHALER IH SCH ×2 (09:59→21:11)
[2022-01-19] MEDS: PRENATAL VITAMINS W/ FOLIC ACID TABLET (FP) PO SCH (09:59)
[2022-01-19] MEDS: NIFEdipine E.R 60 MG TABLET PO SCH (10:00)
[2022-01-19] MEDS: ASPIRIN 81 MG CHEWABLE TABLETS PO SCH (10:00)
[2022-01-19] MEDS: PANTOPRAZOLE 40 MG TABLET PO SCH (10:00)
[2022-01-19] MEDS: FOLIC ACID 1 MG TABLET (FP) PO SCH (10:00)
[2022-01-19] MEDS: TAMSULOSIN HCL 0.4 MG CAP PO SCH (10:00)
[2022-01-19] MEDS: NICOTINE 10 MG CARTRIDGE (INHALER) IH PRN ×2 (12:57→18:49)
[2022-01-19] MEDS: MELATONIN 5 MG TABLETS PO SCH (21:11)
[2022-01-19] MEDS: ATORVASTATIN CA 40 MG TABLET (FP) PO SCH (21:11)
[2022-01-19] MEDS: MIRTAZAPINE 15 MG TABLET (FP) PO SCH (21:11)
[2022-01-19] MEDS: THIAMINE HCL 100 MG TABLET (FP) PO SCH (21:12)
[2022-01-20] MEDS: PANTOPRAZOLE 40 MG TABLET PO SCH (09:44)
[2022-01-20] MEDS: NIFEdipine E.R 60 MG TABLET PO SCH (09:44)
[2022-01-20] MEDS: FOLIC ACID 1 MG TABLET (FP) PO SCH (09:44)
[2022-01-20] MEDS: ASPIRIN 81 MG CHEWABLE TABLETS PO SCH (09:44)
[2022-01-20] MEDS: BUDESONIDE/FORMETEROL FUMARATE 160/4.5 mcg INHALER IH SCH ×2 (09:45→21:04)
[2022-01-20] MEDS: PRENATAL VITAMINS W/ FOLIC ACID TABLET (FP) PO SCH (09:45)
[2022-01-20] MEDS: TAMSULOSIN HCL 0.4 MG CAP PO SCH (09:45)
[2022-01-20] MEDS: NICOTINE 10 MG CARTRIDGE (INHALER) IH PRN (16:20)
[2022-01-20] MEDS: ATORVASTATIN CA 40 MG TABLET (FP) PO SCH (21:04)
[2022-01-20] MEDS: THIAMINE HCL 100 MG TABLET (FP) PO SCH (21:04)
[2022-01-20] MEDS: MIRTAZAPINE 15 MG TABLET (FP) PO SCH (21:04)
[2022-01-20] MEDS: MELATONIN 5 MG TABLETS PO SCH (21:04)
[2022-01-21 07:04] VITALS: BP 148/79; PULSE 84; TEMP 97.7
[2022-01-21] MEDS: NIFEdipine E.R 60 MG TABLET PO SCH (09:51)
[2022-01-21] MEDS: FOLIC ACID 1 MG TABLET (FP) PO SCH (09:51)
[2022-01-21] MEDS: ASPIRIN 81 MG CHEWABLE TABLETS PO SCH (09:51)
[2022-01-21] MEDS: TAMSULOSIN HCL 0.4 MG CAP PO SCH (09:51)
[2022-01-21] MEDS: PRENATAL VITAMINS W/ FOLIC ACID TABLET (FP) PO SCH (09:51)
[2022-01-21] MEDS: PANTOPRAZOLE 40 MG TABLET PO SCH (09:51)
[2022-01-21] MEDS: BUDESONIDE/FORMETEROL FUMARATE 160/4.5 mcg INHALER IH SCH (09:51)
== END 2022-01-21 13:00 | disposition home or self-care (01) | DRG 895 ==
LOC: YASAS 12:41 → Y6N 16:39 → Y5N 01-15 14:15
PROVIDERS: ADMIT Allergy & Immunology; ATTEND Allergy & Immunology
PROC: HZ2ZZZZ Detoxification Services for Substance Abuse Treatment (ICD-10-PCS; 2022-01-11)
PROC: HZ42ZZZ Group Counseling for Substance Abuse Treatment, Cognitive-Behavioral (ICD-10-PCS; principal; 2022-01-15)
DX: F10.20 Alcohol dependence, uncomplicated (principal); F17.210 Nicotine dependence, cigarettes, uncomplicated; F19.24 Other psychoactive substance dependence with psychoactive substance-induced mood disorder; D64.9 Anemia, unspecified; E83.51 Hypocalcemia; E78.5 Hyperlipidemia, unspecified; I10 Essential (primary) hypertension; J44.9 Chronic obstructive pulmonary disease, unspecified; N40.0 Benign prostatic hyperplasia without lower urinary tract symptoms; Z86.19 Personal history of other infectious and parasitic diseases; Z99.89 Dependence on other enabling machines and devices
CPT/HCPCS: 36415; 80053; 82962; 85025; 86593; 86780; C9803-CS; U0003; U0005

== ENCOUNTER 2022-05-20 20:38 | Inpatient (IN) | payer OTHER ==
[2022-05-20] MEDS ORDERED: ALBUTEROL SO4 2.5/IPRATROPIUM 0.5 INH SOL 3 ML VIAL.NEB. NEB ONE ×3 (20:44→21:27)
[2022-05-20] MEDS ORDERED: DEXAMETHASONE SOD PHOSPHATE 10 MG/1 ML VIAL ONE (20:44)
[2022-05-20] MEDS ORDERED: methylPREDNISolone NA SUCC 125 MG/2 ML VIAL IVPUSH ONE (21:20)
[2022-05-20] MEDS ORDERED: SODIUM CHLORIDE 1,701 ML IV ONE (21:27)
[2022-05-20] MEDS ORDERED: diazePAM CARPU-JECT 10 MG/2 ML DISP.SYRIN IVPUSH ONE (21:28)
[2022-05-20] MEDS ORDERED: CEFTRIAXONE 1,000 MG in DEXTROSE 5%-WATER - 50 ML IVPB ONE (21:38)
[2022-05-20] MEDS ORDERED: AZITHROMYCIN IVPB 500 MG in DEXTROSE 5%-WATER - 250 ML IVPB ONE (21:38)
[2022-05-20] MEDS ORDERED: diazePAM CARPU-JECT 10 MG/2 ML DISP.SYRIN ONE (21:49)
[2022-05-20] MEDS ORDERED: CEFTRIAXONE 1 GM/50 ML BAG ONE (22:02)
[2022-05-20 22:08] LABS: VENOUS BASE EXCESS -9.8 mmol/L (-2-2); VENOUS O2 SATURATION 72.8 % (70-80); VENOUS PCO2 25.7 mmHg (38-52); VENOUS PH 7.358 (7.310-7.410)
[2022-05-20 22:12] LABS: BASO % 0.6 % (0-2.0); EOS % 0.2 % (0-4.5); HEMATOCRIT 31.7 % (35.4-49); HEMOGLOBIN 10.9 GM/dL (11.7-16.9); LYMPH % 11.9 % (8-40); MCH 32.5 pg (25.7-33.7); MCHC 34.4 g/dl (32.0-35.9); MEAN CELL VOLUME 94.5 fl (80-96); MEAN PLT VOLUME 8.6 fl (7.5-11.1); MONO % 6.4 % (3.8-10.2); NEUT % 80.9 % (42.8-82.8); PLATELET COUNT 54 10^3/uL (134-434); RBC 3.36 M/mm3 (4.00-5.60); RDW 17.5 % (11.9-15.9); WHITE BLOOD COUNT 3.2 K/mm3 (4.0-10.0)
[2022-05-20 22:21] LABS: INR 0.98 (0.83-1.09); PROTHROMBIN TIME (PATIENT) 11.3 SEC (9.7-13.0)
[2022-05-20 22:24] LABS: ACTIVATED PTT 28.3 SECONDS (25.2-36.5)
[2022-05-20] MEDS ORDERED: AZITHROMYCIN IVPB 500 MG/250 ML BAG IVPB ONE (22:24)
[2022-05-20 22:37] LABS: ALBUMIN 3.6 g/dl (3.4-5.0); BLOOD UREA NITROGEN 12.9 mg/dL (7-18); CALCIUM 8.2 mg/dL (8.5-10.1)
[2022-05-20 22:38] LABS: MAGNESIUM 1.5 mg/dL (1.8-2.4)
[2022-05-20 22:41] LABS: CREATININE 1.1 mg/dL (0.55-1.3)
[2022-05-20 22:42] LABS: TOT PROT 6.8 g/dl (6.4-8.2)
[2022-05-20 23:46] LABS: CALCIUM 8.1 mg/dL (8.5-10.1)
[2022-05-20 23:47] LABS: ALBUMIN 3.4 g/dl (3.4-5.0); BLOOD UREA NITROGEN 13.1 mg/dL (7-18)
[2022-05-20 23:52] LABS: TOT PROT 6.8 g/dl (6.4-8.2)
[2022-05-21 02:07] LABS: EPI CELLS 4 /uL (0-25.1); HYALINE CASTS 1 /uL (0-3.1); PH,URINE 5.5 (5.0-8.0); URINE APPEARANCE CLEAR; URINE BACTERIA 4 /uL (0-1359); URINE BILIRUBIN NEGATIVE (NEGATIVE); URINE COLOR YELLOW; URINE GLUCOSE (UA) 2+ (NEGATIVE); URINE KETONE 3+ (NEGATIVE); URINE LEUK ESTERASE NEGATIVE (NEGATIVE); URINE NITRITE NEGATIVE (NEGATIVE); URINE PROTEIN 2+ (NEGATIVE); URINE RBC 24 /uL (0-23.9); URINE WBC 7 /uL (0-25.8)
[2022-05-21 02:29] VITALS: BMI 16.9
[2022-05-21 03:07] LABS: LACTIC ACID 2.1 mmol/L (0.4-2.0)
[2022-05-21] MEDS ORDERED: LORazepam 1 MG TABLET PO PRN (04:54)
[2022-05-21] MEDS: SODIUM CHLORIDE 1,000 ML IV SCH (05:30)
[2022-05-21] MEDS: LORazepam 1 MG TABLET PO SCH ×4 (05:30→22:16)
[2022-05-21] MEDS ORDERED: ALBUTEROL SO4 HFA INHALER IH PRN (06:51)
[2022-05-21 07:30] LABS: HEMATOCRIT 28.6 % (35.4-49); HEMOGLOBIN 9.7 GM/dL (11.7-16.9); MCHC 33.9 g/dl (32.0-35.9); MEAN CELL VOLUME 94.2 fl (80-96); MEAN PLT VOLUME 8.5 fl (7.5-11.1); RBC 3.04 M/mm3 (4.00-5.60)
[2022-05-21 07:41] LABS: PLATELET COUNT 33 10^3/uL (134-434); WHITE BLOOD COUNT 1.7 K/mm3 (4.0-10.0)
[2022-05-21 07:52] LABS: CALCIUM 7.1 mg/dL (8.5-10.1); MAGNESIUM 1.2 mg/dL (1.8-2.4)
[2022-05-21 07:55] LABS: CREATININE 0.8 mg/dL (0.55-1.3); PHOSPHOROUS 3.2 mg/dL (2.5-4.9)
[2022-05-21 07:57] LABS: BILIRUBIN,TOTAL 0.7 mg/dL (0.2-1); TOT PROT 5.5 g/dl (6.4-8.2)
[2022-05-21] MEDS ORDERED: PNEUMOC 20-VAL CONJ-DIP CRM/PF 0.5 ML SYRINGE IM ONE (08:00)
[2022-05-21] MEDS ORDERED: MAGNESIUM SULF 50% (8.12 MEQ/2 ML-1 GM VIAL) IVPB ONE ×2 (08:03→11:00)
[2022-05-21 08:17] LABS: ALBUMIN 2.7 g/dl (3.4-5.0)
[2022-05-21] MEDS ORDERED: AMPICILLIN NA/SULBACTAM NA 1.5 GM VIAL ONE (08:19)
[2022-05-21] MEDS ORDERED: CALCIUM GLUC IN NACL, ISO-OSM 1 GM/50 ML BAG IVPB ONE ×2 (08:39→11:00)
[2022-05-21] MEDS ORDERED: AMPICILLIN NA/SULBACTAM NA 1.5 GM in SODIUM CHLORIDE 100 ML IVPB SCH (09:00)
[2022-05-21] MEDS ORDERED: CALCIUM GLUCONATE 10% - 1,000 MG/10 ML VIAL IVPB ONE (10:00)
[2022-05-21] MEDS ORDERED: FOLIC ACID 1 MG TABLET (FP) PO SCH (10:00)
[2022-05-21] MEDS: FOLIC ACID 1 MG TABLET (FP) PO SCH (10:27)
[2022-05-21] MEDS: NIFEdipine E.R 60 MG TABLET PO SCH (10:27)
[2022-05-21] MEDS: ASPIRIN 81 MG CHEWABLE TABLETS PO SCH (10:27)
[2022-05-21] MEDS: TAMSULOSIN HCL 0.4 MG CAP PO SCH (10:27)
[2022-05-21] MEDS: SERTRALINE HCL 25 MG TABLET (FP) PO SCH (10:28)
[2022-05-21] MEDS: LORATADINE 10 MG TABLET PO SCH (10:28)
[2022-05-21] MEDS: PANTOPRAZOLE 40 MG TABLET PO SCH (10:28)
[2022-05-21] MEDS: MULTIVITAMINS THER W-MINERALS COMBO TABLET (FP) PO SCH (10:28)
[2022-05-21] MEDS: THIAMINE HCL 100 MG TABLET (FP) PO SCH (10:30)
[2022-05-21 10:45] LABS: ANISOCYTOSIS 0; HELMET CELLS 0; HOWELL-JOLLY BODIES 0; MACROCYTOSIS 0; OVALOCYTE 0; ROULEAU 0; SICKELED CELLS 0; TARGET CELLS 0; TEAR DROP CELLS 0; TOXIC GRANULATION 0
[2022-05-21] MEDS ORDERED: VANCOMYCIN 1 GM in D5W (PRE-DOCKED) 1,000 MG/250 ML IVPB SCH (12:15)
[2022-05-21] MEDS ORDERED: MAGNESIUM SULF 50% (8.12 MEQ/2 ML-1 GM VIAL) ONE (12:20)
[2022-05-21] MEDS ORDERED: VANCOMYCIN 1 GM/200 ML PREMIX BAG IVPB SCH (12:30)
[2022-05-21] MEDS ORDERED: PIPERACILLIN/TAZOB 4.5 GM 4.5 GM in DEXTROSE 5%-WATER 100 ML IVPB SCH (15:00)
[2022-05-21] MEDS: PIPERACILLIN/TAZOB 4.5 GM 4.5 GM in DEXTROSE 5%-WATER 100 ML IVPB SCH ×2 (19:01→19:18)
[2022-05-21] MEDS ORDERED: MIRTAZAPINE 15 MG TABLET (FP) PO SCH (22:00)
[2022-05-21] MEDS: ATORVASTATIN CA 40 MG TABLET (FP) PO SCH (22:17)
[2022-05-22] MEDS: PIPERACILLIN/TAZOB 4.5 GM 4.5 GM in DEXTROSE 5%-WATER 100 ML IVPB SCH ×4 (02:34→17:40)
[2022-05-22] MEDS: LORazepam 1 MG TABLET PO SCH ×3 (05:49→17:41)
[2022-05-22] MEDS: SODIUM CHLORIDE 1,000 ML IV SCH (06:26)
[2022-05-22] MEDS: NIFEdipine E.R 60 MG TABLET PO SCH (09:04)
[2022-05-22] MEDS: TAMSULOSIN HCL 0.4 MG CAP PO SCH (09:05)
[2022-05-22] MEDS: LORATADINE 10 MG TABLET PO SCH (09:05)
[2022-05-22] MEDS: SERTRALINE HCL 25 MG TABLET (FP) PO SCH (09:05)
[2022-05-22] MEDS: PANTOPRAZOLE 40 MG TABLET PO SCH (09:05)
[2022-05-22] MEDS: ASPIRIN 81 MG CHEWABLE TABLETS PO SCH (09:05)
[2022-05-22] MEDS: FOLIC ACID 1 MG TABLET (FP) PO SCH (09:05)
[2022-05-22] MEDS: MULTIVITAMINS THER W-MINERALS COMBO TABLET (FP) PO SCH (09:05)
[2022-05-22] MEDS: THIAMINE HCL 100 MG TABLET (FP) PO SCH (09:05)
[2022-05-22] MEDS: TIOTROPIUM BROMIDE 2.5 MCG (SPIRIVA) RESPIMAT INHALER IH SCH (09:07)
[2022-05-22] MEDS ORDERED: PATIENT'S OWN MEDICATION (NON-FORMULARY) (Umeclidinium Bromide [Incruse Ellipta] 62.5 MCG IH SCH (10:00)
[2022-05-22 12:55] LABS: BASO % 0.5 % (0-2.0); EOS % 0.9 % (0-4.5); HEMATOCRIT 32.8 % (35.4-49); HEMOGLOBIN 11.3 GM/dL (11.7-16.9); LYMPH % 13.8 % (8-40); MCH 32.2 pg (25.7-33.7); MCHC 34.4 g/dl (32.0-35.9); MEAN CELL VOLUME 93.5 fl (80-96); MONO % 8.4 % (3.8-10.2); NEUT % 76.4 % (42.8-82.8); PLATELET COUNT 43 10^3/uL (134-434); RDW 17.3 % (11.9-15.9); WHITE BLOOD COUNT 3.5 K/mm3 (4.0-10.0)
[2022-05-22 13:25] LABS: ALBUMIN 2.9 g/dl (3.4-5.0); BLOOD UREA NITROGEN 5.9 mg/dL (7-18); MAGNESIUM 1.9 mg/dL (1.8-2.4)
[2022-05-22 13:28] LABS: CREATININE 0.8 mg/dL (0.55-1.3); PHOSPHOROUS 1.4 mg/dL (2.5-4.9)
[2022-05-22 13:30] LABS: BILIRUBIN,TOTAL 1.1 mg/dL (0.2-1); TOT PROT 5.8 g/dl (6.4-8.2)
[2022-05-22] MEDS ORDERED: LORazepam 2 MG TABLET PO ONE (14:30)
[2022-05-22] MEDS ORDERED: LORazepam 0.5 MG TABLET PO ONE (14:45)
[2022-05-22] MEDS ORDERED: LORazepam 1 MG TABLET PO ONE (15:00)
[2022-05-22] MEDS ORDERED: LORazepam 2 MG/ML SDV VIAL IVPUSH ONE (21:20)
[2022-05-22] MEDS: ATORVASTATIN CA 40 MG TABLET (FP) PO SCH (22:12)
[2022-05-23] MEDS ORDERED: LORazepam 0.5 MG TABLET PO PRN
[2022-05-23] MEDS: LORazepam 1 MG TABLET PO SCH (00:05)
[2022-05-23] MEDS: PIPERACILLIN/TAZOB 4.5 GM 4.5 GM in DEXTROSE 5%-WATER 100 ML IVPB SCH ×3 (02:18→18:56)
[2022-05-23] MEDS: LORazepam 0.5 MG TABLET PO SCH ×4 (05:26→23:24)
[2022-05-23] MEDS: PANTOPRAZOLE 40 MG TABLET PO SCH (10:21)
[2022-05-23] MEDS: TIOTROPIUM BROMIDE 2.5 MCG (SPIRIVA) RESPIMAT INHALER IH SCH (10:21)
[2022-05-23] MEDS: FOLIC ACID 1 MG TABLET (FP) PO SCH (10:21)
[2022-05-23] MEDS: THIAMINE HCL 100 MG TABLET (FP) PO SCH (10:21)
[2022-05-23] MEDS: TAMSULOSIN HCL 0.4 MG CAP PO SCH (10:21)
[2022-05-23] MEDS: LORATADINE 10 MG TABLET PO SCH (10:21)
[2022-05-23] MEDS: NIFEdipine E.R 60 MG TABLET PO SCH (10:21)
[2022-05-23] MEDS: ASPIRIN 81 MG CHEWABLE TABLETS PO SCH (10:21)
[2022-05-23] MEDS: MULTIVITAMINS THER W-MINERALS COMBO TABLET (FP) PO SCH (10:21)
[2022-05-23] MEDS: SERTRALINE HCL 25 MG TABLET (FP) PO SCH (10:21)
[2022-05-23 12:02] LABS: BASO % 1.1 % (0-2.0); EOS % 0.6 % (0-4.5); HEMATOCRIT 34.3 % (35.4-49); HEMOGLOBIN 11.6 GM/dL (11.7-16.9); LYMPH % 28.7 % (8-40); MCH 31.8 pg (25.7-33.7); MCHC 33.9 g/dl (32.0-35.9); MEAN CELL VOLUME 93.7 fl (80-96); MEAN PLT VOLUME 8.2 fl (7.5-11.1); MONO % 8.2 % (3.8-10.2); NEUT % 61.4 % (42.8-82.8); PLATELET COUNT 56 10^3/uL (134-434); RBC 3.66 M/mm3 (4.00-5.60); RDW 17.3 % (11.9-15.9); WHITE BLOOD COUNT 2.4 K/mm3 (4.0-10.0)
[2022-05-23 12:31] LABS: CALCIUM 8.6 mg/dL (8.5-10.1)
[2022-05-23 12:32] LABS: BLOOD UREA NITROGEN 6.1 mg/dL (7-18); MAGNESIUM 1.7 mg/dL (1.8-2.4)
[2022-05-23 12:35] LABS: PHOSPHOROUS 1.8 mg/dL (2.5-4.9)
[2022-05-23 12:37] LABS: BILIRUBIN,TOTAL 0.9 mg/dL (0.2-1); TOT PROT 6.1 g/dl (6.4-8.2)
[2022-05-23] MEDS ORDERED: MAGNESIUM SULF 50% (8.12 MEQ/2 ML-1 GM VIAL) IVPB ONE (14:58)
[2022-05-23] MEDS ORDERED: NAPH,MB-DB/K PH,MBDB POWDER PACKET PO ONE (16:53)
[2022-05-23] MEDS: ATORVASTATIN CA 40 MG TABLET (FP) PO SCH (22:28)
[2022-05-24] MEDS: PIPERACILLIN/TAZOB 4.5 GM 4.5 GM in DEXTROSE 5%-WATER 100 ML IVPB SCH ×2 (01:45→09:41)
[2022-05-24] MEDS ORDERED: LORazepam 0.5 MG TABLET PO ONE ×2 (05:00→06:45)
[2022-05-24 08:19] LABS: BASO % 2.8 % (0-2.0); EOS % 1.2 % (0-4.5); HEMATOCRIT 32.4 % (35.4-49); HEMOGLOBIN 11.1 GM/dL (11.7-16.9); LYMPH % 18.7 % (8-40); MCH 31.8 pg (25.7-33.7); MCHC 34.3 g/dl (32.0-35.9); MEAN CELL VOLUME 92.8 fl (80-96); MEAN PLT VOLUME 8.3 fl (7.5-11.1); MONO % 11.8 % (3.8-10.2); NEUT % 65.5 % (42.8-82.8); PLATELET COUNT 69 10^3/uL (134-434); RBC 3.49 M/mm3 (4.00-5.60); RDW 17.3 % (11.9-15.9); WHITE BLOOD COUNT 2.6 K/mm3 (4.0-10.0)
[2022-05-24 08:25] LABS: ALBUMIN 2.9 g/dl (3.4-5.0); BLOOD UREA NITROGEN 9.6 mg/dL (7-18); MAGNESIUM 1.7 mg/dL (1.8-2.4)
[2022-05-24 08:27] LABS: PHOSPHOROUS 2.4 mg/dL (2.5-4.9)
[2022-05-24 08:28] LABS: CREATININE 1.1 mg/dL (0.55-1.3)
[2022-05-24 08:29] LABS: BILIRUBIN,TOTAL 0.8 mg/dL (0.2-1); TOT PROT 6.1 g/dl (6.4-8.2)
[2022-05-24] MEDS: MULTIVITAMINS THER W-MINERALS COMBO TABLET (FP) PO SCH (09:41)
[2022-05-24] MEDS: LORATADINE 10 MG TABLET PO SCH (09:41)
[2022-05-24] MEDS: THIAMINE HCL 100 MG TABLET (FP) PO SCH (09:42)
[2022-05-24] MEDS: TAMSULOSIN HCL 0.4 MG CAP PO SCH (09:42)
[2022-05-24] MEDS: SERTRALINE HCL 25 MG TABLET (FP) PO SCH (09:42)
[2022-05-24] MEDS: PANTOPRAZOLE 40 MG TABLET PO SCH (09:42)
[2022-05-24] MEDS: ASPIRIN 81 MG CHEWABLE TABLETS PO SCH (09:42)
[2022-05-24] MEDS: NIFEdipine E.R 60 MG TABLET PO SCH (09:42)
[2022-05-24] MEDS: FOLIC ACID 1 MG TABLET (FP) PO SCH (09:42)
[2022-05-24] MEDS: TIOTROPIUM BROMIDE 2.5 MCG (SPIRIVA) RESPIMAT INHALER IH SCH (09:43)
[2022-05-24] MEDS ORDERED: ALBUTEROL SO4 HFA INHALER IH PRN (12:37)
[2022-05-24] MEDS: NAPH,MB-DB/K PH,MBDB POWDER PACKET PO SCH ×3 (15:08→21:22)
[2022-05-24] MEDS ORDERED: MAGNESIUM SULF 50% (8.12 MEQ/2 ML-1 GM VIAL) IVPB ONE (17:54)
[2022-05-24] MEDS ORDERED: PIPERACILLIN/TAZOB 4.5 GM 4.5 GM in DEXTROSE 5%-WATER 100 ML IVPB SCH (18:00)
[2022-05-24 19:06] LABS: HIV INTERPRETATION NEGATIVE (NEGATIVE)
[2022-05-24] MEDS: ATORVASTATIN CA 40 MG TABLET (FP) PO SCH (21:22)
[2022-05-25] MEDS: NAPH,MB-DB/K PH,MBDB POWDER PACKET PO SCH ×3 (06:07→22:00)
[2022-05-25] MEDS: THIAMINE HCL 100 MG TABLET (FP) PO SCH (09:35)
[2022-05-25] MEDS: NIFEdipine E.R 60 MG TABLET PO SCH (09:35)
[2022-05-25] MEDS: ASPIRIN 81 MG CHEWABLE TABLETS PO SCH (09:35)
[2022-05-25] MEDS: TAMSULOSIN HCL 0.4 MG CAP PO SCH (09:35)
[2022-05-25] MEDS: PANTOPRAZOLE 40 MG TABLET PO SCH (09:35)
[2022-05-25] MEDS: MULTIVITAMINS THER W-MINERALS COMBO TABLET (FP) PO SCH (09:35)
[2022-05-25] MEDS: SERTRALINE HCL 25 MG TABLET (FP) PO SCH (09:39)
[2022-05-25] MEDS: LORATADINE 10 MG TABLET PO SCH (09:39)
[2022-05-25] MEDS: TIOTROPIUM BROMIDE 2.5 MCG (SPIRIVA) RESPIMAT INHALER IH SCH (09:40)
[2022-05-25] MEDS ORDERED: PNEUMOC 20-VAL CONJ-DIP CRM/PF 0.5 ML SYRINGE IM ONE (13:24)
[2022-05-25] MEDS: FOLIC ACID 1 MG TABLET (FP) PO SCH (13:28)
[2022-05-25] MEDS: ATORVASTATIN CA 40 MG TABLET (FP) PO SCH (22:00)
[2022-05-26] MEDS: NAPH,MB-DB/K PH,MBDB POWDER PACKET PO SCH ×4 (05:19→22:10)
[2022-05-26] MEDS: ASPIRIN 81 MG CHEWABLE TABLETS PO SCH (10:07)
[2022-05-26] MEDS: PANTOPRAZOLE 40 MG TABLET PO SCH (10:07)
[2022-05-26] MEDS: THIAMINE HCL 100 MG TABLET (FP) PO SCH (10:07)
[2022-05-26] MEDS: MULTIVITAMINS THER W-MINERALS COMBO TABLET (FP) PO SCH (10:07)
[2022-05-26] MEDS: SERTRALINE HCL 25 MG TABLET (FP) PO SCH (10:07)
[2022-05-26] MEDS: TIOTROPIUM BROMIDE 2.5 MCG (SPIRIVA) RESPIMAT INHALER IH SCH (10:07)
[2022-05-26] MEDS: LORATADINE 10 MG TABLET PO SCH (10:07)
[2022-05-26] MEDS: TAMSULOSIN HCL 0.4 MG CAP PO SCH (10:07)
[2022-05-26] MEDS: NIFEdipine E.R 60 MG TABLET PO SCH (10:07)
[2022-05-26 10:33] LABS: BASO % 1.5 % (0-2.0); EOS % 1.9 % (0-4.5); HEMATOCRIT 33.9 % (35.4-49); HEMOGLOBIN 11.4 GM/dL (11.7-16.9); LYMPH % 24.8 % (8-40); MCH 31.4 pg (25.7-33.7); MCHC 33.6 g/dl (32.0-35.9); MEAN CELL VOLUME 93.4 fl (80-96); MEAN PLT VOLUME 7.4 fl (7.5-11.1); MONO % 19.3 % (3.8-10.2); NEUT % 52.5 % (42.8-82.8); PLATELET COUNT 142 10^3/uL (134-434); RBC 3.63 M/mm3 (4.00-5.60); RDW 17.6 % (11.9-15.9)
[2022-05-26] MEDS: FOLIC ACID 1 MG TABLET (FP) PO SCH (10:43)
[2022-05-26 11:09] LABS: CALCIUM 8.4 mg/dL (8.5-10.1)
[2022-05-26 11:10] LABS: BLOOD UREA NITROGEN 16.5 mg/dL (7-18); MAGNESIUM 1.8 mg/dL (1.8-2.4)
[2022-05-26 11:13] LABS: CREATININE 0.9 mg/dL (0.55-1.3); PHOSPHOROUS 4.6 mg/dL (2.5-4.9)
[2022-05-26] MEDS: ATORVASTATIN CA 40 MG TABLET (FP) PO SCH (22:09)
[2022-05-26] MEDS ORDERED: ACETAMINOPHEN 325 MG TABLET (FP) PO PRN (22:14)
[2022-05-27] MEDS: NAPH,MB-DB/K PH,MBDB POWDER PACKET PO SCH ×3 (05:54→22:02)
[2022-05-27] MEDS: MULTIVITAMINS THER W-MINERALS COMBO TABLET (FP) PO SCH (09:32)
[2022-05-27] MEDS: TAMSULOSIN HCL 0.4 MG CAP PO SCH (09:32)
[2022-05-27] MEDS: THIAMINE HCL 100 MG TABLET (FP) PO SCH (09:32)
[2022-05-27] MEDS: PANTOPRAZOLE 40 MG TABLET PO SCH (09:32)
[2022-05-27] MEDS: NIFEdipine E.R 60 MG TABLET PO SCH (09:32)
[2022-05-27] MEDS: ASPIRIN 81 MG CHEWABLE TABLETS PO SCH (09:33)
[2022-05-27] MEDS: SERTRALINE HCL 25 MG TABLET (FP) PO SCH (09:33)
[2022-05-27] MEDS: LORATADINE 10 MG TABLET PO SCH (09:33)
[2022-05-27] MEDS: FOLIC ACID 1 MG TABLET (FP) PO SCH (09:34)
[2022-05-27] MEDS: TIOTROPIUM BROMIDE 2.5 MCG (SPIRIVA) RESPIMAT INHALER IH SCH (09:35)
[2022-05-27 12:31] LABS: HEMATOCRIT 31.8 % (35.4-49); HEMOGLOBIN 10.7 GM/dL (11.7-16.9); MCHC 33.6 g/dl (32.0-35.9); MEAN CELL VOLUME 95.2 fl (80-96); MEAN PLT VOLUME 7.3 fl (7.5-11.1); PLATELET COUNT 168 10^3/uL (134-434); RBC 3.35 M/mm3 (4.00-5.60); RDW 17.2 % (11.9-15.9); WHITE BLOOD COUNT 3.3 K/mm3 (4.0-10.0)
[2022-05-27 12:54] LABS: BLOOD UREA NITROGEN 18.4 mg/dL (7-18); CALCIUM 8.5 mg/dL (8.5-10.1)
[2022-05-27 12:55] LABS: MAGNESIUM 1.8 mg/dL (1.8-2.4)
[2022-05-27 12:58] LABS: PHOSPHOROUS 4.4 mg/dL (2.5-4.9)
[2022-05-27 14:06] LABS: ANISOCYTOSIS 0; MACROCYTOSIS 1+; OVALOCYTE 1+
[2022-05-27] MEDS: ATORVASTATIN CA 40 MG TABLET (FP) PO SCH (22:02)
[2022-05-28 01:16] VITALS: RESP 20
[2022-05-28] MEDS: NAPH,MB-DB/K PH,MBDB POWDER PACKET PO SCH ×2 (05:56→14:11)
[2022-05-28] MEDS: MULTIVITAMINS THER W-MINERALS COMBO TABLET (FP) PO SCH (09:52)
[2022-05-28] MEDS: LORATADINE 10 MG TABLET PO SCH (09:52)
[2022-05-28] MEDS: NIFEdipine E.R 60 MG TABLET PO SCH (09:53)
[2022-05-28] MEDS: PANTOPRAZOLE 40 MG TABLET PO SCH (09:53)
[2022-05-28] MEDS: TAMSULOSIN HCL 0.4 MG CAP PO SCH (09:53)
[2022-05-28] MEDS: FOLIC ACID 1 MG TABLET (FP) PO SCH (09:53)
[2022-05-28] MEDS: SERTRALINE HCL 25 MG TABLET (FP) PO SCH (09:53)
[2022-05-28] MEDS: ASPIRIN 81 MG CHEWABLE TABLETS PO SCH (09:53)
[2022-05-28] MEDS: THIAMINE HCL 100 MG TABLET (FP) PO SCH (09:53)
[2022-05-28] MEDS: TIOTROPIUM BROMIDE 2.5 MCG (SPIRIVA) RESPIMAT INHALER IH SCH (09:54)
[2022-05-28 16:34] VITALS: BP 123/85; PULSE 99; TEMP 98.6
== END 2022-05-28 17:37 | DRG 896 ==
LOC: JER 20:38 → JERBED 21:28 → J4W 05-21 02:11 → J5S 05-24 12:38
PROVIDERS: ADMIT Internal Medicine; ATTEND Internal Medicine
PROC: HZ2ZZZZ Detoxification Services for Substance Abuse Treatment (ICD-10-PCS; principal; 2022-05-20)
DX: F10.230 Alcohol dependence with withdrawal, uncomplicated (principal); E43 Unspecified severe protein-calorie malnutrition; J44.1 Chronic obstructive pulmonary disease with (acute) exacerbation; Z68.1 Body mass index [BMI] 19.9 or less, adult; J98.11 Atelectasis; D70.9 Neutropenia, unspecified; R50.81 Fever presenting with conditions classified elsewhere; F17.200 Nicotine dependence, unspecified, uncomplicated; I25.10 Atherosclerotic heart disease of native coronary artery without angina pectoris; I25.2 Old myocardial infarction
CPT/HCPCS: 0241U-QW; 36415; 71045-TC-FY; 71275-TC; 80048; 80053; 81003; 82550; 82553; 82803; 83036; 83605; 83690; 83735; 84100; 84484; 85025; 85027; 85379; 85610; 85730; 86850; 86900; 86901; 87040; 87086; 87389; 90677; 93005; 93010; 94010; 97116-GP; 97162-GP; 99291; 99292; C9803-CS; U0003; U0005